=== PATIENT | male | born 1950 | race Caucasian/White ===

== ENCOUNTER 2023-10-14 20:30 | Observation (INO) | payer MEDICARE, OTHER, SELFPAY ==
[2023-10-14] VITALS (8 sets, daily range): BP systolic 125–151; BP diastolic 69–98
[2023-10-14 15:46] LABS: % Basophils 0.7 % (0-2); % Eosinophils 2.4 % (0-6); % Immature Granulocytes 0.1 % (0-0.5); % Monocytes 10.3 % (1.7-9.3); % Neutrophils 62.5 % (42.2-75.2); Absolute Basophils 0.1 10^3/uL (0-0.2); Absolute Eosinophils 0.2 10^3/uL (0-0.7); Absolute Lymphocytes 1.8 10^3/uL (1.2-3.4); Absolute Monocytes 0.8 10^3/uL (0.1-0.6); Absolute Neutrophils 4.6 10^3/uL (1.4-6.5); Hematocrit 41.7 % (39.0-52.0); Hemoglobin 14.2 g/dL (13.0-18.0); Mean Corp Hgb Conc. 34.1 g/dL (33.0-37.0); Mean Corpuscular Hgb 29.7 pg (27.0-31.0); Mean Corpuscular Volume 87.2 fL (80.0-94.0); Mean Platelet Volume 10.6 fL (7.4-10.4); Nucleated Red Blood Cells % 0 % (-); Platelet Count 217 10^3/uL (130-400); Red Blood Cell Count 4.78 10^6/uL (4.70-6.10); Red Cell Dist. Width 15.4 % (11.5-14.5); White Blood Cell Count 7.4 10^3/uL (4.8-10.8)
[2023-10-14 16:02] LABS: ALT (SGPT) 17 U/L (0-50); AST (SGOT) 21 U/L (17-59); Albumin 4.2 g/dl (3.5-5.0); Alkaline Phosphatase 89 U/L (38-126); Blood Urea Nitrogen 25 mg/dl (9-20); Calcium 9.5 mg/dl (8.4-10.2); Carbon Dioxide 24 mmol/L (22-30); Chloride 105 mmol/L (98-107); Glucose 103 mg/dl (70-99); Potassium 4.5 mmol/L (3.5-5.1); Sodium 136 mmol/L (135-145); Total Bilirubin 0.5 mg/dl (0.2-1.3); Total Protein 7.5 g/dl (6.3-8.2); eGFR > 60.00
[2023-10-14 16:03] LABS: Erythrocyte Sed Rate 15 mm/hour (0-20)
[2023-10-14 16:06] LABS: C-Reactive Protein < 5.00 mg/L (0.0-10.00)
[2023-10-14 16:10] LABS: Troponin I < 0.012 ng/ml
[2023-10-14] MEDS: LIPITOR 80 MG PO (19:29)
[2023-10-14] MEDS: PLAVIX 300 MG PO (19:29)
[2023-10-14] MEDS: ASPIRIN 325 MG PO (19:29)
--- NOTE | 2023-10-14 19:42 | ED.GENMED ---
History of Present Illness
General
Chief Complaint: Eye Problems
Source: patient and spouse
Exam Limitations: none
Time Seen by Provider: 10/14/23 18:36
Nursing documentation reviewed up to this point in time: agreed with
History of Present Illness
History of Present Illness:
74-year-old male presenting to the emergency department today with concerns of loss of vision to the left side of his vision while watching TV yesterday lasting 1 hour. This was painless. Discharge no specific vomiting or additional numbness or
weakness. Was seen by ophthalmology today and sent in for concerns of amaurosis.
Past History
Past History
ED Past Medical History: Other (Hepatitis C); Negative Asthma, CAD, Cancer, CHF or CVA
ED Past Surgical History: Negative Appendectomy, Bowel resection, Brain, Cardiac or Cholecystectomy
Social History
Tobacco: Non-smoker
Alcohol: None
Drug: None
Personal:
Living: with family
Employment: Employed
Family History
Family History: Hypertension and Other (GERD)
Review of Systems
Review of Systems
Allergies reviewed?: Yes
All Other Systems: ROS reviewed and negative except as documented in HPI and ROS
Phy Exam
Physical Exam
Physical Exam:
GENERAL: Alert , in no apparent distress
EYE: pupils equal and reactive
NECK: Supple, no significant adenopathy.
ENT: o/p clr, mmm.
CARDIAC: Regular rate and rhythm .
LUNGS: Clear breath sounds bilaterally, no acute respiratory distress, no wheezes/rales/rhonchi
ABDOMEN: Soft, without focal tenderness, no r/g, no cvat
NEUROLOGICAL: Alert and oriented, no focal neuro deficits 5 out of 5 upper and lower extremity strength normal sensation with pain bilaterally normal finger-nose and [id number] no pronator drift
SKIN: Warm and dry, skin intact.
MUSCULOSKELETAL: No edema, well perfused.
PSYCH: Normal and appropriate interaction.
Course
Orders/Labs/Results
Orders:
Orders
10/14/23 15:17
Electrocardiogram (*1) Urgent
Reason for Study: Other
Other Reason for Exam: vision change
CT Head W/o Iv Contrast Urgent
Comment:
Reason For Exam: vision change
EKG- Treatment ONCE
10/14/23 15:26
CRP [C-Reactive Protein] Urgent
Complete Blood Count/With Diff Urgent
Comprehensive Metabolic Panel Urgent
Erythrocyte Sed Rate Urgent
Troponin I Urgent
10/14/23 19:07
Aspirin 325 mg PO NOW STA
Atorvastatin [Lipitor] 80 mg PO NOW STA
Clopidogrel Bisulfate [Plavix] 300 mg PO NOW STA
Abnormal Lab Results
10/14/23
15:26
RDW 15.4 H %
(11.5-14.5)
MPV 10.6 H fL
(7.4-10.4)
Absolute Monos (auto) 0.8 H 10^3/uL
(0.1-0.6)
Monocytes % 10.3 H %
(1.7-9.3)
BUN 25 H mg/dl
(9-20)
Glucose 103 H mg/dl
(70-99)
10/14/23 15:26
10/14/23 15:26
Vital Signs
Initial and Last Documented VS:
Initial Vital Signs
Temp Pulse Resp BP Pulse Ox
97.8 F 75 20 136/88 98
10/14/23 15:12 10/14/23 15:12 10/14/23 15:12 10/14/23 15:12 10/14/23 15:12
Last Documented Vital Signs
Temp Pulse Resp BP Pulse Ox
97.7 F 64 20 151/83 98
10/14/23 16:42 10/14/23 18:00 10/14/23 18:00 10/14/23 18:45 07/31/24 18:46
MDM/Problems Addressed
MDM/Problems Addressed:
74-year-old male presenting to the emergency department today with concerns of left-sided vision loss yesterday lasting 1 hour. Sent in by ophtho today with concerns of emesis fugax. Here normal head CT Case discussed with neurology who recommends
MRI brain, MRA of the head and neck. Patient was started on Plavix aspirin as well as atorvastatin and will be admitted for further assessment. Stable in the ER normal neurologic evaluation here.
*Critical Care Note
Total Time (30-74mins, 75-104mins- exclusive of procedures): Not Applicable
ED Attending Note
-
Portions of this chart may have been created with voice recognition software.� Occasional wrong word or��sound alike� substitutions may have occurred due to the inherent limitations of voice recognition software.
Discharge Plan
Departure
Patient Disposition: Admit
Date of Disposition: 10/14/23
Time of Disposition: 19:44
Admit to: Med/Surg
Admit to doctor: Celso
Presentation/result/management discussed w/ accepting MD/DO: Hospitalist
Patient with high blood pressure during this ER visit?: No
Condition: Good
Covid-19: Not Applicable
Discharge Problem:
AF (amaurosis fugax)
Prescriptions:
No Action
docosahexaenoic acid-epa 1 CAP capsule
1 cap PO DAILY
multivitamin with folic acid [Tab-A-Jannet] 1 TABLET tablet
0.5 tab PO BID
cholecalciferol (vitamin D3) [Vitamin D3] 400 UNITS tablet
400 units PO BID
Referrals:
Binta Medina DO [Family Provider] -
Interventions
Interventions:
*Risk Screen - Suicide Last Done: 10/14/23 15:12
*General Assessment Last Done: 10/14/23 15:12
*Neglect/Abuse Screening Last Done: 10/14/23 15:12
ED- Fall Risk Assessment Last Done: 10/14/23 18:59
*ED COVID-19 Vaccine History Last Done: 10/14/23 18:59
Discharge Date and Time
Print Language: GERMAN
--- NOTE | 2023-10-14 20:06 | HPS.HSE ---
Family Physician
-
Family Physician: Binta Medina
Chief Complaint
-
Vision Change
History of Present Illness
Patient is a 73y M with PMH significant for BPH who presents to ED complaining of vision change. Patient states that he was watching TV yesterday evening when he noted vision in his L eye turn orange then gradually darker - from the top down -
until he could not see from the L eye at all. Patient lie on the couch with a magazine over his face for several hours. He was able to see better when he finally got up. This AM he noted that his vision had returned to normal.
Patient denies any associated symptoms such as headache, numbness, tingling, weakness, clumsiness, etc.
This AM he [place] his [place]. Later in the day, he presented to his eye doctor who performed a complete exam which was reportedly unremarkable.
Patient was advised to present to the ED for further evaluation.
Currently he is resting comfortably and has no complaints. He states that his vision is normal.
Patient notes an episode 2 years ago of bilateral blurry vision and aching pain in the eyes. He had 5 brief episodes of these symptoms. He as seen by Ophtho at that time as well.
He was placed on ASA 81mg daily at that time - which he ultimately tapered off of. He has not been on ASA in > 1 year.
Medical History
Past Medical History
Past Medical History: Reports Other
Additional Past Medical History:
BPH
? Prior TIA / Vision Change
Past Surgical History: Reports Other
Additional Past Surgical History:
L Heel Fusion
Hernia Repair
Social History
Tobacco: Former Smoker (Quit smoking 30 years ago. Approx 20 pack years total use.)
Alcohol: Occasional
Drug: None
Family History
Family History: Other (Father: CAD Mother: Macular Degeneration)
Allergies / Home Medications
Allergies reflects when Allergies were last updated in [facility].
Home Medications with original date entered in [facility]
Allergy/Medication List:
Allergies
Allergy/AdvReac Type Severity Reaction Status Date / Time
No Known Allergies Allergy Verified 10/14/23 15:12
Home Medications
multivitamin with folic acid 400 mcg tablet (Tab-A-Jannet) 1 tab PO DAILY 10/18/10
ascorbic acid (vitamin C) 500 mg tablet (Vitamin C) 500 mg PO DAILY 10/14/23
cholecalciferol (vitamin D3) 25 mcg (1,000 unit) tablet 25 mcg PO DAILY 10/14/23
omega 5-jhf-fat-fish oil 1,000 mg (120 mg-180 mg) capsule (Fish Oil) 1 cap PO DAILY 10/14/23
tamsulosin 0.4 mg capsule 0.4 mg PO QPM 10/14/23
Review of Systems
-
History Source: Patient
A 12 point ROS was completed and negative except as noted: Yes
Constitutional: Denies Fever, Fatigue or Chills
EENT: Reports Other (Vision change as per HPI.); Denies Sore Throat or Runny Nose
Respiratory: Denies Cough or Trouble Breathing
Cardiac: Denies Chest Pain or Palpitations
Abdomen/GI: Denies Abdominal Pain, Nausea, Vomiting or Diarrhea
: Reports Difficulty Voiding; Denies Dysuria, Frequency or Flank Pain
Musculoskeletal: Denies Joint Pain or Edema
Neurological: Denies Dizzy or Headache
Psych: Denies Depression or Anxiety
Physical Exam
Vital Signs
Vital Signs
Temp Pulse Resp BP Pulse Ox
97.7 F 64 20 151/83 98
10/14/23 16:42 10/14/23 18:00 10/14/23 18:00 10/14/23 18:45 10/14/23 18:46
Physical Exam
General: Other (73y M in no acute distress.)
HEENT: Moist mucous membranes and Other (Pupils are dilated s/p Ophtho exam earlier today. No carotid bruits.)
Respiratory: Clear; No Wheezes, Rales or Rhonchi
Cardiac: S1/S2 and Regular Rhythm; No Murmur
GI: Soft, Non Tender, Non Distended and Normal Bowel Sounds
Musculoskeletal: No Clubbing, No Cyanosis and Other (Trace edema at the L ankle.)
Neuro: AO x 3 and Nonfocal/grossly intact
Laboratory Results
-
10/14/23 15:26
10/14/23 15:
Laboratory Results
Total Bilirubin 0.5 mg/dl (0.2-1.3) 10/14/23 15:
AST 21 U/L (17-59) 10/14/23 15:
ALT 17 U/L (0-50) 10/14/23 15:26
Alkaline Phosphatase 89 U/L (38-126) 10/14/23 15:
Troponin I < 0.012 ng/ml 10/14/23 15:26
Impression/Plan
-
A/P: Patient is a 73y M with PMH significant for BPH and prior vision change / ? TIA who presents to ED complaining of vision changes last PM.
Amaurosis Fugax
- Observe overnight for further evaluation and treatment.
- Symptoms have fully resolved.
- Completed Ophtho eval which was reportedly normal.
- ESR / CRP done in the ED today are completely normal making TA / GCA unlikely.
- DAPT started. Statin started.
- MRI / MRA in AM.
- Follow for any new / recurrent vision changes or other neuro deficits.
- Neurology evaluation.
BPH
- Stable. Continue tamsulosin.
- Bladder scan protocol.
DVT Prophylaxis: SCDs
Code Status: Full
[2023-10-14] MEDS: FLOMAX 0.4 MG PO (23:30)
[2023-10-15] VITALS (14 sets, daily range): BP systolic 75–133; BP diastolic 47–95; PULSE 82–85; O2SAT 98; BMI 24.7
[2023-10-15 01:08] LABS: TSH Reflex To Free T4 4.55 uIU/ml (0.47-4.68)
[2023-10-15 06:24] LABS: Hematocrit 40.2 % (39.0-52.0); Hemoglobin 13.4 g/dL (13.0-18.0); Mean Corp Hgb Conc. 33.3 g/dL (33.0-37.0); Mean Corpuscular Hgb 29.2 pg (27.0-31.0); Mean Corpuscular Volume 87.6 fL (80.0-94.0); Mean Platelet Volume 10.6 fL (7.4-10.4); Platelet Count 204 10^3/uL (130-400); Red Blood Cell Count 4.59 10^6/uL (4.70-6.10); Red Cell Dist. Width 15.2 % (11.5-14.5); White Blood Cell Count 7.6 10^3/uL (4.8-10.8)
[2023-10-15 06:34] LABS: Blood Urea Nitrogen 19 mg/dl (9-20); Calcium 9.4 mg/dl (8.4-10.2); Carbon Dioxide 26 mmol/L (22-30); Chloride 107 mmol/L (98-107); Glucose 91 mg/dl (70-99); HDL Cholesterol 39 mg/dl; LDL Cholesterol, Calculated 94 mg/dl; Potassium 4.1 mmol/L (3.5-5.1); Sodium 137 mmol/L (135-145); Total Cholesterol 147 mg/dl (50-199); Triglyceride 73 mg/dl (10-149); Very Low Density Lipoprotein 14 mg/dl (0-30); eGFR > 60.00
[2023-10-15 08:37] LABS: Glycohemoglobin (HgbA1c) 5.5 % (4.0-5.6)
[2023-10-15] MEDS: LOW STRENGTH ASPIRIN 81 MG PO (08:57)
[2023-10-15] MEDS: PLAVIX 75 MG PO (08:57)
--- NOTE | 2023-10-15 10:13 | CON.NEURO4 ---
Consultation - Neurology 4
-
CONSULTING PHYSICIAN: Oswaldo Griffin
REFERRING PHYSICIAN: ER
DICTATED BY: Oswaldo Griffin
DATE/TIME OF REQUEST: 10/15/23
DATE/TIME OF CONSULTATION: 10/15/23
Reason for Consultation: Left eye vision change concern for amaurosis/TIA
History of Present Illness:
Patient is a 73-year-old male with a past ministry of BPH and hyperlipidemia who presented to hospital because of sudden onset painless left eye vision change occurring on 10/12. This had happened while he was watching TV and he noticed that the
left thigh had vision change with an orange color and then gradually darkening until complete blackness and not able to see anything on the left eye, he verified that it was the left eye affected only. There was no double vision and no significant
pain to this episode and it lasted around 1 hour before complete resolution and normal vision. The rest of his day was unremarkable and he rode his bike and was doing fine. He saw the eye doctor next day who had normal eye exam but was advised to
the ED due to concern for amaurosis. No symptoms of unilateral facial paresthesia or limb weakness speech difficulty double vision or vertigo.
He has not had any unusual headaches jaw claudication fevers muscle aches or weight loss recently. No other eye issues besides wearing glasses.
Describes an episode extremely short of feeling like a blurred vision in both eyes 2 years ago but is never recurred.
Denies any history of migraine headaches with any photophobia phonophobia or functional limitation. He can occasionally get some zigzag like wavy lines in the vision.
He had been on aspirin previously for primary prevention but has was weaned off.
Had had some cardiac monitoring for couple of days which was unremarkable.
Past Medical History: Hyperlipidemia, BPH
Surgical History: Left heel fusion, hernia repair
Family History: Father with heart disease at elderly age
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
Review of Symptoms:
Patient denies any fever, headache, chest pain, shortness of breath, GI or symptoms.
Physical Exam:
Middle-age man appears younger than his stated age well-appearing no distress no signs of head or neck trauma eyes are clear oropharynx is clear neck no masses heart rate regular breathing unlabored abdomen soft nontender no lower extremity edema
Neurologic Examination:
The patient is awake, alert and oriented x 3. He is able to follow commands and answer questions appropriately. There is no aphasia or dysarthria. On cranial nerve assessment, pupils are 3 mm bilateral, round and reactive to light and
accommodation. Visual hays are full. Vision 20/30 to near card testing in OD and OS. No papilledema on fundoscopy. Extraocular movements are intact. Facial sensations are intact and bilaterally symmetrical, there is no facial asymmetry. Hearing
is intact bilaterally to normal conversation volume. Tongue palate and uvula are midline. Sternocleidomastoid strengths are full bilaterally. Motor strengths are 5/5 bilateral upper and lower extremities on medical research [place] scale. There is
no drift or involuntary movement noted. Deep tendon reflexes are 2+ bilateral upper and lower extremities and Babinski is absent bilaterally. Sensations of pain, touch, temperature and vibration are intact and bilaterally symmetrical. There was no
extinction noted on double simultaneous stimulation. Coordination is intact by finger to nose bilaterally.
Neuro Imaging: CT head unremarkable
Impressions
1. Suspicion of left eye amaurosis fugax given painless vision loss of sudden onset and offset, duration is a bit long at 1 hour but still TIA/amaurosis would be the highest concern. Description does not sound typical for a visual migraine
aura/retinal migraine
2. History hyperlipidemia
3. BPH
4. Previous visual episode of unclear etiology, not typical for TIA or stroke.
Patient has the following risk factors for their symptoms: hyperlipidemia
Recommendations:
1. DAPT therapy anticipated duration will be 21 days and then aspirin monotherapy thereafter
2. I did suggest to patient that he should be on a low-dose statin simvastatin 10-20 mg upon discharge should be sufficient
3. Neurologic checks and NIH stroke scale
4. Check MRI of the brain and MRA of the head and
5. Had had a transthoracic echocardiogram last December I do not feel this needs repeated needed also had some outpatient cardiac monitoring I do not feel would have to have repeat
6. Discussed signs and symptoms of stroke as well as secondary prevention
7. Monitor on cardiac telemetry while here
Discussed patient care with: Patient
--- NOTE | 2023-10-15 11:10 | CM ---
CM reviewed medical records. CM met with patient in room. Patient confirmed demographics. Patient lives with in a single story home. Patient has had ahistory of [facility] , but cannot remember the agency. Patient denies history of SNF. Patient is
active with his PCP. Patient uses [facility].
CM reviewed PT evaluation.
PLAN: Home no needs.
--- NOTE | 2023-10-15 14:45 | W.PN.HOSP.TC ---
Today's Communication/Plan
-
MRI
DAPT
HSQ
Neuro Checks, Tele
Assessment / Plan
Assessment / Plan
Physical Exam
General: Other (73y M in no acute distress.)
HEENT: Moist mucous membranes and Other (Pupils are dilated s/p Ophtho exam earlier today. No carotid bruits.)
Respiratory: Clear; No Wheezes, Rales or Rhonchi
Cardiac: S1/S2 and Regular Rhythm; No Murmur
GI: Soft, Non Tender, Non Distended and Normal Bowel Sounds
Musculoskeletal: No Clubbing, No Cyanosis and Other (Trace edema at the L ankle.)
Neuro: AO x 3 and Nonfocal/grossly intact
A/P: Patient is a 73y M with PMH significant for BPH and prior vision change / ? TIA who presents to ED complaining of vision changes last PM.
Possible Amaurosis Fugax
- MRI pending
-DAPT therapy anticipated duration will be 21 days and then aspirin monotherapy thereafter
-Low dose statin on DC
-Neuro checks
-Neuro f/u
-Telemetry
-Can hold on TTE at this time
BPH
- Stable. Continue tamsulosin.
- Bladder scan protocol.
DVT Prophylaxis: HSQ
Code Status: Full
Anticipated Discharge: Within 24 hours
Subjective/Interval History
-
Date of Service: October 15, 2023
No acute events
Objective Data
-
Labs:
Laboratory Results
10/15/23
05:59
WBC 7.6
Hgb 13.4
Hct 40.2
Plt Count 204
Sodium 137
Potassium 4.1
Chloride 107
Carbon Dioxide 26
BUN 19
Creatinine 1.0
Glucose 91
Calcium 9.4
Vital Signs:
Vital Signs
Temp Pulse Resp BP Pulse Ox
97.5 F 74 17 130/73 96
10/15/23 14:01 10/15/23 14:01 10/15/23 13:00 10/15/23 14:01 10/15/23 14:01
Review of Systems
-
History Source: Patient
All other systems: Not reviewed unless documented
Data Reviewed
-
CT Scan: Image personally visualized and interpreted and Report Reviewed by me
Labs: Labs Reviewed by me
[2023-10-15] MEDS: FLOMAX 0.4 MG PO (16:53)
[2023-10-15] MEDS: LIPITOR 80 MG PO (16:53)
[2023-10-15] MEDS: HEPARIN 5000 UNITS SC ×2 (16:55→23:01)
--- NOTE | 2023-10-15 18:45 | PTCARENOTE ---
10/14- Patient transferred and oriented to unit without issue. AAOX3; Current NIH=0. Skin CDI. Patient denies any needs at this time.
[2023-10-16 03:00] VITALS: BP 107/59
[2023-10-16] MEDS: TYLENOL 650 MG PO (03:08)
[2023-10-16 07:00] VITALS: BP 108/71
--- NOTE | 2023-10-16 07:08 | W.PN.NEURO.1 ---
Today's Communication / Plan
-
Continue do aspirin monotherapy rather than DAPT given healthy looking neck and cerebral vessels and the presence of small cerebral cavernoma
Discussed signs and symptoms of stroke
Would recommend provide prescription of 10 mg simvastatin for discharge
Cavernoma is small incidental and asymptomatic and would not be managed with any type of surgical intervention. Can be considered for monitoring with repeated MRI in 2 years but this lesion has likely been asymptomatic for decades
Neurology follow-up outpatient in 4 weeks, no barriers to discharge
Neuro Assessment/Plan
Assessment
73-year-old man with past history of hyperlipidemia and BPH presented hospital with an episode of sudden onset painless left eye vision loss at first had orange color in the left eye procedure by then nearly complete blackout of vision of the left
eye for approximately 1 hour with an spontaneous quick resolution, a little bit of pressure in the temporal area but no significant headache after this and no other focal neurologic symptoms accompanying the vision loss episode.
Reports extremely brief seconds long bilateral vision blurring 2 years ago without any other neurologic symptoms at that time.
Most concerning for a TIA/amaurosis fugax, no significant carotid stenosis seen
Duration of 1 hour is a bit long and would bring to mind the possibility of migraine visual aura without headache is a possibility but would not make this assumption at this time
MRI of the brain and MRA of the head and neck neck not showing any significant carotid stenosis or intracranial stenosis or occlusion and brain has no acute or chronic stroke
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
Subjective/Objective
Subjective Data
Date of Service: October 16, 2023
No acute events, no further vision episodes of neurologic symptoms, no headache
Objective Data
Vital Signs
Temp Pulse Resp BP Pulse Ox
98 F 68 16 107/59 98
10/16/23 03:00 10/16/23 03:00 10/16/23 03:00 10/16/23 03:00 10/16/23 03:00
Sodium 137 mmol/L (135-145) 10/15/23 05:59
Potassium 4.1 mmol/L (3.5-5.1) 10/15/23 05:59
BUN 19 mg/dl (9-20) 10/15/23 05:59
Glucose 91 mg/dl (70-99) 10/15/23 05:59
Calcium 9.4 mg/dl (8.4-10.2) 10/15/23 05:59
LDL Cholesterol, Calc 94 mg/dl 10/15/23 05:59
Patient Allergies
No Known Allergies Allergy (Verified 10/14/23 15:12)
Review of Systems
-
History Source: Patient
All other systems: Reviewed and negative
Constitutional: No Symptoms
EENT: No Symptoms Reported
Respiratory: No Symptoms
Cardiac: No Symptoms
Abdomen/GI: No Symptoms
Genitourinary: No Symptoms
Musculoskeletal: No Symptoms
Skin: No Symptoms
Neuro: See existing Neuro Note
Endocrine: No Symptoms
Hematologic / Lymphatic: No Symptoms
Allergy / Immunology: No Symptoms
Physical Exam
-
General: Comfortable
Eyes: No Ptosis
HEENT: Normocephalic
Neck: No Bruits Bilaterally
Respiratory: Clear to Auscultation
Cardiac: Regular Rhythm
GI: Normal Bowel Sounds
Skin: Unremarkable
Extremities: No Clubbing
Psych: Unremarkable
Extended Neurological Exam
Mood & Affect: Mood Unremarkable and Affect Unremarkable
Attention Span & Concentration: Awake, Alert and Interactive
Memory: Unremarkable
Tremor: Hand Tremor Absent
Involuntary Movement: None
Speech: Quality Unremarkable and Quantity Unremarkable; Negative Expressive Aphasia or Receptive Aphasia
Cranial Nerve II: Left Eye: Pupillary Reactivity Unremarkable and Visual Grant Intact
Cranial Nerve II: Right Eye: Pupillary Reactivity Unremarkable and Visual Grant Intact
Cranial Nerves III, IV, : Extraocular Movement: Extraocular Movement Full in all Directions
Muscle Strength, Overall: Full Throughout
Pronator Drift: No Drift in Upper Extremities
Data Reviewed
-
MRI Head: Report Reviewed and Image Reviewed
MRA Head: Report Reviewed and Image Reviewed
MRA Neck: Report Reviewed and Image Reviewed
Labs: Report Reviewed
[2023-10-16 08:05] LABS: Hematocrit 41.7 % (39.0-52.0); Hemoglobin 13.9 g/dL (13.0-18.0); Mean Corp Hgb Conc. 33.3 g/dL (33.0-37.0); Mean Corpuscular Hgb 29.6 pg (27.0-31.0); Mean Corpuscular Volume 88.7 fL (80.0-94.0); Mean Platelet Volume 10.6 fL (7.4-10.4); Platelet Count 211 10^3/uL (130-400); Red Cell Dist. Width 15.4 % (11.5-14.5); White Blood Cell Count 6.8 10^3/uL (4.8-10.8)
[2023-10-16] MEDS: HEPARIN 5000 UNITS SC (08:10)
[2023-10-16] MEDS: LOW STRENGTH ASPIRIN 81 MG PO (08:21)
[2023-10-16 08:26] LABS: ALT (SGPT) 16 U/L (0-50); AST (SGOT) 24 U/L (17-59); Albumin 3.8 g/dl (3.5-5.0); Alkaline Phosphatase 74 U/L (38-126); Blood Urea Nitrogen 21 mg/dl (9-20); Calcium 9.8 mg/dl (8.4-10.2); Carbon Dioxide 24 mmol/L (22-30); Chloride 105 mmol/L (98-107); Estimated Creatinine Clearance 65 ml/min; Glucose 89 mg/dl (70-99); Potassium 4.3 mmol/L (3.5-5.1); Sodium 136 mmol/L (135-145); Total Bilirubin 0.9 mg/dl (0.2-1.3); Total Protein 6.8 g/dl (6.3-8.2); eGFR > 60.00
[2023-10-16 11:44] VITALS: BP 131/78
--- NOTE | 2023-10-16 12:13 | CM ---
Chart reviewed and ALMARAZ letter given on admission, home when stable, no needs.
Plan; Home with spouse when stable, no needs.
--- NOTE | 2023-10-16 12:56 | W.PN.HOSP.TC ---
Addendum entered and electronically signed by Del Pollard MD 10/17/23 15:16:
[id number]
Original Note:
Today's Communication/Plan
-
Simvastatin 10mg daily
ASA
Assessment / Plan
Assessment / Plan
Physical Exam
General: Other (73y M in no acute distress.)
HEENT: Moist mucous membranes and Other (Pupils are dilated s/p Ophtho exam earlier today. No carotid bruits.)
Respiratory: Clear; No Wheezes, Rales or Rhonchi
Cardiac: S1/S2 and Regular Rhythm; No Murmur
GI: Soft, Non Tender, Non Distended and Normal Bowel Sounds
Musculoskeletal: No Clubbing, No Cyanosis and Other (Trace edema at the L ankle.)
Neuro: AO x 3 and Nonfocal/grossly intact
A/P: Patient is a 73y M with PMH significant for BPH and prior vision change / ? TIA who presents to ED complaining of vision changes last PM.
Possible Amaurosis Fugax v TIA
-MRI negative
-ASA monotherapy
-Simvastatin 10mg qhs
-Neuro f/u in 4 weeks
-no need for TTE at this time
#Cavernoma is small incidental and asymptomatic and would not be managed with any type of surgical intervention.
-Can be considered for monitoring with repeated MRI in 2 years but this lesion has likely been asymptomatic for decades
BPH
- Stable. Continue tamsulosin.
- Bladder scan protocol.
DVT Prophylaxis: HSQ
Code Status: Full
More than 30 minutes spent in discharge including
Final examination of the patient
Summarizing hospital stay
Instructions for continuing care to all relevant caregivers
Preparation of discharge records, prescriptions, and referral forms
Total time spent (35 in minutes):
Anticipated Discharge: Today
Subjective/Interval History
-
Date of Service: October 16, 2023
no acute events; mri negative for cva
Objective Data
-
Labs:
Laboratory Results
10/16/23
07:06
WBC 6.8
Hgb 13.9
Hct 41.7
Plt Count 211
Sodium 136
Potassium 4.3
Chloride 105
Carbon Dioxide 24
BUN 21 H
Creatinine 1.0
Glucose 89
Calcium 9.8
Total Bilirubin 0.9
AST 24
ALT 16
Alkaline Phosphatase 74
Vital Signs:
Vital Signs
Temp Pulse Resp BP Pulse Ox
97.7 F 69 20 131/78 97
10/16/23 11:44 10/16/23 11:44 10/16/23 11:44 10/16/23 11:44 10/16/23 11:44
Review of Systems
-
History Source: Patient
All other systems: Not reviewed unless documented
Data Reviewed
-
CT Scan: Image personally visualized and interpreted and Report Reviewed by me
Labs: Labs Reviewed by me
--- NOTE | 2023-10-16 13:03 | W.DS.TRANS ---
DC Summary - Watch [employer]
-
Discharge Instructions:
Discharge Diagnosis/Procedures TIA
Diet Low Fat,Low Cholesterol
Activity As tolerated
Instructions:
Stand-Alone Forms:
Changes to Home Medications: Yes
Discharge Medications:
DC Medications w/original date entered in [facility]
multivitamin with folic acid 400 mcg tablet (Tab-A-Jannet) 1 tab PO DAILY Supplement 10/18/10
ascorbic acid (vitamin C) 500 mg tablet (Vitamin C) 500 mg PO DAILY Supplement 10/14/23
cholecalciferol (vitamin D3) 25 mcg (1,000 unit) tablet 25 mcg PO DAILY Supplement 10/14/23
omega 0-yew-zqz-fish oil 1,000 mg (120 mg-180 mg) capsule (Fish Oil) 1 cap PO DAILY Supplement 10/14/23
tamsulosin 0.4 mg capsule 0.4 mg PO QPM Urinary Issue 10/14/23
aspirin 81 mg chewable tablet 81 mg PO DAILY 30 days #30 tabs 10/16/23
simvastatin 10 mg tablet 10 mg PO HS #30 tabs 10/16/23
Home Medication Changes
aspirin 81 mg chewable tablet 81 mg PO DAILY 30 days #30 tabs 10/16/23
simvastatin 10 mg tablet 10 mg PO HS #30 tabs 10/16/23
Pending Results: No
== END 2023-10-16 13:44 | disposition home or self-care (01) ==
LOC: 4 WEST ACU 20:30
PROVIDERS: Emergency Medicine; ADMITTING PHYSICIAN Hospitalist; ATTENDING PHYSICIAN Internal Medicine; EMERGENCY PHYSICIAN Emergency Medicine; FAMILY PHYSICIAN Family Medicine; OTHER PHYSICIAN Student in an Organized Health Care Education/Training Program
DX: G45.3 Amaurosis fugax (principal); E78.5 Hyperlipidemia, unspecified; N40.0 Benign prostatic hyperplasia without lower urinary tract symptoms; Z83.79 Family history of other diseases of the digestive system; Z82.49 Family history of ischemic heart disease and other diseases of the circulatory system; Z79.02 Long term (current) use of antithrombotics/antiplatelets; Z87.891 Personal history of nicotine dependence; Z86.73 Personal history of transient ischemic attack (TIA), and cerebral infarction without residual deficits
CPT/HCPCS: 70450; 70544; 70548; 70551; 80048; 80053; 80061; 83036; 84443; 84484; 85025; 85027; 85652; 86140; 93005; 99285; A9585